=== PATIENT | female | born 1940 | race Caucasian/White ===

== ENCOUNTER 2018-01-25 08:32 | Emergency (ER) | END 2018-01-25 11:57 | disposition home or self-care (01) ==

== ENCOUNTER 2018-10-05 08:41 | Emergency (ER) | payer MEDICARE, OTHER ==
[~2018-10-05] VITALS: Ht 157.5 cm; Wt 64.0 kg
[~2018-10-05 08:41] MED LIST: ACET500C5 PO; CETI10CA PO; CLIN300C10 PO; GENT5DRO28 RIGHT EYE; HYDR-3498 PO
[2018-10-05 08:45] VITALS: BP 166/62; PULSE 74; RESP 20; Ht 157.5 cm; Wt 64.0 kg
--- NOTE | 2018-10-05 09:20 | ERD ---
ER Documentation Chief Complaint Chief Complaint pt is bib self with c/o cough for 5 days, HPI Patient is a 78 years old female with PMHx of HTN and Hypothyroidism presenting to the clinic for worsening cough x 5 days. Patient reports of associated white sputum production, mild sore throat, fever and chills that started initially that resolved. Patient reports cough is worse at night and is now painful on her ribs, rating it 3/10 and frontal headache with cough. Patient admits to taking OTC medication without resolution. ROS All systems reviewed and are negative except as per history of present illness. Medications Home Meds Active Scripts Zjgkkzoyuwu-F-Boasxgunwn Hb* (Guaifenesin* DM Syrup) 120 Ml Syrup, 10 ML PO Q4H PRN for COUGH for 7 Days, #200 ML Prov:ZAHRA HERNANDEZ PA-C 10/05/18 Methylprednisolone* (Medrol* DOSE PACK) 4 Mg/Dose-Pack Tab.ds.pk, 4 MG PO . DIRECTED for 5 Days, PACKET Prov:ZAHRA HERNANDEZ PA-C 10/05/18 Acetaminophen* (Tylophen*) 500 Mg Capsule, 1 CAP PO Q6H PRN for PAIN AND OR ELEVATED TEMP, #20 CAP Prov:FELIPE MIRELES PA-C 01/25/18 Clindamycin Hcl* (Clindamycin Hcl*) 300 Mg Capsule, 300 MG PO TID for 7 Days, CAP Prov:GUILLE OTT PA-C 02/20/16 Cetirizine Hcl* (Zyrtec*) 10 Mg Capsule, 10 MG PO DAILY, #10 TAB.CHEW Prov:GUILLE OTT PA-C 02/20/16 Gentamicin Sulfate* (Gentafair* Ophth) 0.3% - 5 Ml Drops, 1 DROP RIGHT EYE Q4 for 7 Days, EA Prov:GUILLE OTT PA-C 02/20/16 Hydrocodone Bit-Acetaminophen* (Beaver*) 5-325 Mg Tab, 1 TAB PO Q6 PRN for PAIN, #10 TAB Prov:RUTHY ANNE DO 11/08/14 Discontinued Scripts Azithromycin* (Zithromax*) 500 Mg Tablet, 500 MG PO DAILY for 3 Days, TAB Prov:ZAHRA HERNANDEZ PA-C 10/05/18 Allergies Allergies: Coded Allergies: No Known Allergy (Unverified , 01/25/18) PMhx/Soc Medical and Surgical Hx: pt denies Surgical Hx History of Surgery: No Hx Neurological Disorder: No Hx Respiratory Disorders: No Hx Cardiac Disorders: Yes (HTN) Hx Psychiatric Problems: No Hx Miscellaneous Medical Probl: Yes (THYROID PROBLEM) Hx Alcohol Use: No Hx Substance Use: No Hx Tobacco Use: No FmHx Family History: No diabetes, No coronary disease, No other Physical Exam Vitals Vital Signs Date Temp Pulse Resp B/P (MAP) Pulse Ox O2 O2 Flow FiO2 Time Delivery Rate 10/05/18 98.0 74 20 166/62 97 08:45 (96) Physical Exam Const: No acute distress Head: Atraumatic Eyes: Normal Conjunctiva ENT: Normal External Ears, Nose and Mouth. Mild oropharyngeal erythema. Neck: Full range of motion. No meningismus. Resp: Clear to auscultation bilaterally. No accessory muscle usage noted. Cardio: Regular rate and rhythm, no murmurs Abd: Soft, non tender, non distended. Normal bowel sounds Skin: No petechiae or rashes Neur: Awake and alert Psych: Normal Mood and Affect Results 24 hrs Current Medications Medications Dose Sig/Randall Start Time Status Last (Trade) Ordered Route PRN Stop Time Admin Dose Reason Admin 125 mg ONCE ONCE 10/05/18 DC 10/05/18 Methylprednis IM 09:30 09:19 olone Sodium 10/05/18 09:31 Succinate (Solu-Medrol) Piperacillin 50 ml @ ONCE ONCE 10/05/18 Cancel Sod/ 100 mls/hr IVPB 10:30 Tazobactam 10/05/18 10:59 Sod Procedures/MDM Patient was seen and evaluated for worsening cough most likely due to Viral URI. CXR as per patient's request revealed Mild to moderate cardiomegaly without congestive heart failure or pneumonia. Patient was given Solumedrol IM w/ significant improvement. Low suspicion for sepsis. Patient is stable and ready for discharge. F/U with PCP. Patient will be given Medrol Dosepak, guaifenesin DM. Patient reports seeing a portable canteen operator every year for cardiomegaly. Departure Diagnosis: Primary Impression: Cough Condition: Stable Patient Instructions: Cough, Chronic, Uncertain Cause, (Adult) Referrals: [facility] Additional Instructions: Paciente aconseja volver a Departamento de urgencias inmediatamente para sntomas nuevos o que empeoran . Paciente aconseja posteriores con el PCP en 2-3 purdy . Paciente verbaliza la comprehensin y est de acuerdo con el tratamiento y el curso de accin. Si el paciente no tiene ninguna de atencin primaria pueden seguir con [facility] [address] [place] [address] o [facility] + [address] [address] ZAHRA HERNANDEZ PA-C Oct 05, 2018 09:20
[2018-10-05] MEDS ORDERED: MED4DP PO (09:22)
[2018-10-05] MEDS ORDERED: GUAI120S25 PO (09:22)
[2018-10-05] MEDS ORDERED: METHYLPREDNISOLONE 125 MG INJ IM ONE (09:30)
[2018-10-05] MEDS ORDERED: AZIT500T3 PO (10:09)
[2018-10-05] MEDS ORDERED: PIPER-TAZO 2.25 GM (PMX) 50 ML IVPB ONE (10:30)
== END 2018-10-05 10:25 | disposition home or self-care (01) ==
LOC: FTE 08:41
DX: R05 Cough (principal); I10 Essential (primary) hypertension
CPT/HCPCS: 71046; 96372; 99284; J2930; J2543